=== PATIENT | male | born 1945 | race Caucasian/White ===

== ENCOUNTER 2018-03-28 17:47 | Emergency (ER) | payer MEDICARE, BC ==
[2018-03-28] MEDS ORDERED: Acetaminophen/oxyCODONE 325-5 MG Tab PO ONE (17:48)
[2018-03-28] MEDS: Sodium Chloride 0.9% 1,000 ML IV ONE (18:24)
[2018-03-28] MEDS: Morphine 2 MG/ML Syringe IVPUSH ONE (18:36)
[2018-03-28] MEDS: Ketorolac 30 MG/ML SDV IVPUSH ONE (18:37)
[2018-03-28] MEDS: HYDROmorphone 0.5 MG/0.5 ML Syringe IVPUSH ONE (19:09)
[2018-03-28 19:51] VITALS: BP 151/75
[2018-03-28] MEDS ORDERED: Acetaminophen/oxyCODONE 325-5 MG Tab ONE (19:56)
--- NOTE | 2018-03-28 19:58 | EDM.PDOC ---
Scribed by Marcela Elias 03/28/181917 for Graciela Grijalva PA-C ED HPI GENERAL MEDICAL PROBLEM - General Chief Complaint: Genitourinary Problem Stated Complaint: KIDNEY STONE [phone] Time Seen by Provider: 03/28/18 18:00 Source of Information: Reports: Patient, RN, RN Notes Reviewed History Limitations: Reports: No Limitations - History of Present Illness INITIAL COMMENTS - FREE TEXT/NARRATIVE: Patient presents to ER with complaint of left flank pain, 04/22. He states he has known kidney stones1 measuring 9 mm. He states he had a cystoscopy today and the pain has increasingly gotten worse on his way home from [place]. Patient states he has had blood in the urine [id number].Patient is scheduled to have the stone blasted next week. Onset: Gradual Duration: Getting Worse Location: Reports: Other (left flank) Quality: Reports: Ache Severity: Severe Improves with: Reports: None Worsens with: Reports: None Associated Symptoms: Reports: No Other Symptoms Left Flank Pain Score (Numeric/FACES): 8 - Related Data Allergies Allergy/AdvReac Type Severity Reaction Status Date / Time No Known Allergies Allergy Verified 03/28/18 18:12 Home Meds: Home Meds Citalopram [Celexa] 1 tab PO DAILY 02/12/16 [History] Ibuprofen 1 tab PO ASDIRECTED PRN 02/12/16 [History] Omeprazole 1 tab PO DAILY 02/12/16 [History] Simvastatin 1 tab PO BEDTIME 02/12/16 [History] Vardenafil HCl [Levitra] 1 tab PO ASDIRECTED PRN 02/12/16 [History] Aspirin [Ecotrin] 81 mg PO DAILY 03/28/18 [History] Past Medical History HEENT History: Reports: Hard of Hearing Cardiovascular History: Reports: High Cholesterol, Hypertension Respiratory History: Reports: None Gastrointestinal History: Reports: GERD Genitourinary History: Reports: Prostate Disorder Musculoskeletal History: Reports: None Neurological History: Reports: None Psychiatric History: Reports: Other (See Below) Other Psychiatric History: mood disorder Endocrine/Metabolic History: Reports: None Hematologic History: Reports: None Immunologic History: Reports: None Oncologic (Cancer) History: Reports: None Dermatologic History: Reports: None - Infectious Disease History Infectious Disease History: Reports: Chicken Pox, Measles - Past Surgical History GI Surgical History: Reports: Colonoscopy, EGD Male Surgical History: Reports: Prostate Biopsy ED ROS GENERAL - Review of Systems Review Of Systems: ROS reveals no pertinent complaints other than HPI. ED EXAM, RENAL/ - Physical Exam Exam: See Below Exam Limited By: Other (moderate distress due to pain in left flank.) General Appearance: Alert, WD/WN, No Apparent Distress Eye Exam: Bilateral Eye: EOMI, Normal Inspection, PERRL Ears: Other (hard of hearing, hearing aids) Nose: Normal Inspection, Normal Mucosa, No Blood Throat/Mouth: Normal Inspection, Normal Lips, Normal Teeth, Normal Gums, Normal Oropharynx, Normal Voice, No Airway Compromise Head: Atraumatic, Normocephalic Neck: Normal Inspection, Supple, Non-Tender, Full Range of Motion Respiratory/Chest: No Respiratory Distress, Lungs Clear, Normal Breath Sounds, No Accessory Muscle Use, Chest Non-Tender Cardiovascular: Normal Peripheral Pulses, Regular Rate, Rhythm, No Edema, No Gallop, No JVD, No Murmur, No Rub GI/Abdominal: Other (left flank/CVA pain) (Male) Exam: Deferred Rectal (Males) Exam: Deferred Back Exam: Normal Inspection, Full Range of Motion, NT Extremities: Normal Inspection, Normal Range of Motion, Non-Tender, Normal Capillary Refill, No Pedal Edema Neurological: Alert Psychiatric: Anxious Skin Exam: Warm, Dry, Intact, Normal Color, No Rash Lymphatic: No Adenopathy Course - Vital Signs Last Recorded V/S: Last Vital Signs Temp 98.8 F 03/28/18 19:50 Pulse 67 03/28/18 19:50 Resp 18 03/28/18 19:50 BP 151/75 H 03/28/18 19:50 Pulse Ox 93 L 03/28/18 19:50 - Orders/Labs/Meds Orders: Active Orders 24 hr Category Date Time Status UA W/MICROSCOPIC [URIN] Stat Lab 03/28/18 19:24 Ordered Labs: Laboratory Tests 03/28/18 Range/Units 19:24 Urine Color Yellow (YELLOW) Urine Appearance Slightly cloudy (CLEAR) Urine pH 6.5 (5.0-9.0) Ur Specific [place] 1.020 (1.005-1.030) Urine Protein Negative (NEGATIVE) Urine Glucose (UA) Negative (NEGATIVE) Urine Ketones Trace H (NEGATIVE) Urine Occult Blood Large H (NEGATIVE) Urine Nitrite Negative (NEGATIVE) Urine Bilirubin Negative (NEGATIVE) Urine Urobilinogen 1.0 (0.2-1.0) mg/dL Ur Leukocyte Esterase Negative (NEGATIVE) Urine RBC >100 H /HPF Urine WBC 5-10 H (0-5/HPF) /HPF Ur Epithelial Cells Rare /HPF Urine Bacteria Rare (0-FEW/HPF) /HPF Urine Mucus Rare /LPF Meds: Medications Discontinued Medications Generic Name Dose Route Start Last Admin Trade Name Avelinoq PRN Reason Stop Dose Admin Hydromorphone HCl 1 mg 03/28/18 19:04 03/28/18 19:09 Dilaudid IVPUSH 03/28/18 19:05 1 mg ONETIME ONE Administration Sodium Chloride 1,000 mls @ 999 mls/hr 03/28/18 18:08 03/28/18 18:24 Normal Saline IV 03/28/18 19:08 999 mls/hr .BOLUS ONE Administration Ketorolac Tromethamine 30 mg 03/28/18 18:08 03/28/18 18:37 Toradol IVPUSH 03/28/18 18:09 Not Given ONETIME ONE Morphine Sulfate 2 mg 03/28/18 18:31 03/28/18 18:36 Morphine IVPUSH 03/28/18 18:32 2 mg ONETIME ONE Administration - Re-Assessments/Exams Free Text/Narrative Re-Assessment/Exam: 03/28/18 19:57 1940: Telephone consult Dr Caitlyn [facility]. Recommend pain control and follow up as scheduled On Wednesday. Departure - Departure Time of Disposition: 19:54 Disposition: Home, Self-Care 01 Condition: Good Clinical Impression: Kidney stone - Discharge Information *PRESCRIPTION DRUG MONITORING PROGRAM REVIEWED*: No Instructions: Kidney Stones Referrals: Renan Herrera MD [Primary Care Provider] - Forms: ED Department Discharge Additional Instructions: increased fluids tylenol 650mg mild pain every 4 hours as needed percocet 5/325 one every 6 hours as needed for severe pain #12 follow up with urologist or primary care if recurrent pain - My Orders Last 24 Hours: My Active Orders 03/28/18 19:24 UA W/MICROSCOPIC [URIN] Stat - Assessment/Plan Last 24 Hours: My Active Orders 03/28/18 19:24 UA W/MICROSCOPIC [URIN] Stat I have read and agree with the documentation that has been completed regarding this visit. By signing this record, I attest that the documentation was completed in my physical presence and is an accurate record of the encounter.
== END 2018-03-28 20:00 | disposition home or self-care (01) ==
LOC: DL.ED 17:47
DX: N20.0 Calculus of kidney (principal); I10 Essential (primary) hypertension; K21.9 Gastro-esophageal reflux disease without esophagitis; E78.00 Pure hypercholesterolemia, unspecified; Z79.82 Long term (current) use of aspirin; Z79.899 Other long term (current) drug therapy
CPT/HCPCS: 81001; 96361; 96374; 96375; 99283; 99284; A9270; J1170; J2270; J7030

== ENCOUNTER 2019-03-14 07:26 | Day surgery (SDC) | payer MEDICARE, BC ==
[~2019-03-14 07:26] MED LIST: Dextrose 5%-0.45% NaCl 1,000 ML IV SCH; Midazolam 1 MG/ML 2 ML SDV ONE; Sodium Chloride 0.9% 10 ML Syringe FLUSH PRN; fentaNYL 100 MCG/2 ML SDV ONE
[2019-03-14] MEDS ORDERED: Midazolam 1 MG/ML 2 ML SDV IV ONE ×3 (07:27→08:43)
[2019-03-14] MEDS ORDERED: fentaNYL 100 MCG/2 ML SDV IV ONE ×3 (07:27→08:42)
[2019-03-14 11:02] VITALS: BP 111/53
--- NOTE | 2019-03-14 13:36 | OR ---
DATE: 03/14/2019 PROCEDURE: Esophagogastroduodenoscopy and multiple pinch biopsies. INSTRUMENT USED: [id number] Olympus video panendoscope. PREMEDICATIONS: No oral topical anesthesia used. Fentanyl 100 mcg intravenous, Versed 2 mg intravenous, nasal O2 cannula. The procedure was done under pulse oximetry, BP recording, and gambling monitor. INDICATION: The patient with persistent cough, regurgitation unexplained, and not responsive to medical measures, on high-dose PPI. Esophagogastroduodenoscopy is performed for detection of any active erosive lesions, [place] esophagus, and/or malignancy also under consideration. H. pylori status to be determined, endoscopic hemostasis therapy if needed. PROCEDURE IN DETAIL: The scope was passed with ease. Adequate visualization of the esophagus was made from proximal to distal areas. No upper esophageal lesions identified. No distal esophageal stricture. No uphill or downhill esophageal varices. No Pallavi-Grigsby tear. No evidence of erosive esophagitis by [place] criteria. No esophageal polyp or tumor mass identified. Some tertiary contractions of the esophagus noted. Z-line was seen at around 40 cm distal to the oral verge, configuration consistent with grade 1 by ZAP classification. No proximal gastric varices noted. Gastric fundus examination by retroflexion showed benign-appearing diminutive polyps. No gastric ulcer, malignant mass, or vascular ectasia identified. Duodenal bulb showed no ulcer. Visualized second part of the duodenum was unremarkable. Multiple pinch biopsies were taken from the gastric antrum and proximal body and sent for PyloriTek test for H. pylori, and if negative in an hour, tissue is to be sent for histopathology. No bleeding was noted from any of the visualized areas at the completion of examination. Photographs were taken of the duodenal bulb, gastric antrum, fundus, and distal esophagus. IMPRESSION: 1. Presbyesophagus. 2. Diminutive gastric fundus polyps. The patient tolerated the procedure well. [facility] /[id number]
== END 2019-03-14 10:52 | disposition home or self-care (01) ==
LOC: DL.ENDO 07:26
PROVIDERS: ATTEND Internal Medicine Gastroenterology
DX: K31.7 Polyp of stomach and duodenum (principal); K22.8 Other specified diseases of esophagus; R05 Cough; I10 Essential (primary) hypertension; E78.5 Hyperlipidemia, unspecified; N52.9 Male erectile dysfunction, unspecified; M19.90 Unspecified osteoarthritis, unspecified site; Z79.899 Other long term (current) drug therapy
CPT/HCPCS: 43239; 87077; J2250; J3010; J7042

== ENCOUNTER 2023-02-16 06:23 | Day surgery (SDC) | payer MEDICARE, BC ==
[~2023-02-16 06:23] MED LIST changes: -Midazolam 1 MG/ML 2 ML SDV ONE; +Sodium Chloride 0.9% 10 ML Syringe FLUSH SCH; -fentaNYL 100 MCG/2 ML SDV ONE
[2023-02-16] MEDS ORDERED: fentaNYL 100 MCG/2 ML SDV ONE (07:00)
[2023-02-16] MEDS ORDERED: Midazolam 1 MG/ML 2 ML SDV ONE (07:00)
[2023-02-16] MEDS ORDERED: fentaNYL 100 MCG/2 ML SDV IV ONE ×2 (07:04→07:05)
[2023-02-16] MEDS ORDERED: Midazolam 1 MG/ML 2 ML SDV IV ONE ×3 (07:05→07:10)
[2023-02-16 08:22] VITALS: BP 135/60; PULSE 59
== END 2023-02-16 08:27 | disposition home or self-care (01) ==
LOC: DL.ENDO 06:23
PROVIDERS: ATTEND Internal Medicine Gastroenterology
DX: Z12.11 Encounter for screening for malignant neoplasm of colon (principal); D12.3 Benign neoplasm of transverse colon; K57.30 Diverticulosis of large intestine without perforation or abscess without bleeding
CPT/HCPCS: 45385; J2250; J3010; J7042